=== PATIENT | female | born 1970 | race Asian ===

== ENCOUNTER 2024-05-30 06:10 | Day surgery (SDC) | payer OTHER ==
[2024-05-26 18:04] VITALS: BMI 31.6
[2024-05-30] MEDS ORDERED: MIDAZOLAM HCL 2 MG/2 ML SINGLE DOSE VIAL ONE (07:10)
[2024-05-30] MEDS ORDERED: oxyCODONE HCL 5 MG TABLET PO PRN ×2 (08:28)
[2024-05-30] MEDS ORDERED: ONDANSETRON 4 MG/2 ML VIAL IVPUSH PRN (08:28)
[2024-05-30] MEDS ORDERED: LACTATED RINGERS SOLUTION 1,000 ML IV SCH (08:30)
[2024-05-30] MEDS ORDERED: DEXAMETHASONE SOD PHOSPHATE 10 MG/1 ML VIAL ONE (08:36)
[2024-05-30] MEDS ORDERED: ACETAMINOPHEN INJECTION 100 ML IVPB ONE (08:36)
[2024-05-30] MEDS ORDERED: BUPIVACAINE HCL/PF 0.5% (5 MG/ML) 30 ML VIAL IJ ONE (08:36)
[2024-05-30] MEDS ORDERED: ROPIVACAINE HCL 0.5% 30ML VIAL ONE (08:37)
[2024-05-30] MEDS ORDERED: BUPIVACAINE HCL/PF 0.25% (2.5MG/ML) 10 ML VIAL ONE (08:37)
[2024-05-30] MEDS ORDERED: EPINEPHrine 1:1,000 1,000 MCG/ML ML ONE (08:37)
[2024-05-30] MEDS ORDERED: PROPOFOL 20 ML ONE (09:19)
[2024-05-30] MEDS ORDERED: ceFAZolin SODIUM 1 GM VIAL ONE ×2 (09:27)
[2024-05-30] MEDS ORDERED: ONDANSETRON 4 MG/2 ML VIAL ONE (09:31)
[2024-05-30] MEDS ORDERED: KETOROLAC TROMETHAMINE 30 MG/1 ML VIAL ONE (09:31)
[2024-05-30 15:17] VITALS: BP 140/60; PULSE 91; RESP 21; TEMP 97.1
== END 2024-05-30 13:27 | disposition home or self-care (01) ==
LOC: FASU 06:10
PROVIDERS: ATTEND Orthopaedic Surgery Sports Medicine
PROC: 0RNK4ZZ Release Left Shoulder Joint, Percutaneous Endoscopic Approach (ICD-10-PCS; 2024-05-30)
PROC: 0PBB4ZZ Excision of Left Clavicle, Percutaneous Endoscopic Approach (ICD-10-PCS; 2024-05-30)
PROC: 0LS44ZZ Reposition Left Upper Arm Tendon, Percutaneous Endoscopic Approach (ICD-10-PCS; principal; 2024-05-30 09:47)
DX: M75.122 Complete rotator cuff tear or rupture of left shoulder, not specified as traumatic (principal); M75.22 Bicipital tendinitis, left shoulder; M19.012 Primary osteoarthritis, left shoulder; M75.02 Adhesive capsulitis of left shoulder; M94.212 Chondromalacia, left shoulder
CPT/HCPCS: 36415; 82010; 82962; 94760; C1713; J0131; J1100